=== PATIENT | male | born 1995 | race Caucasian/White ===

== ENCOUNTER 2017-09-18 14:17 | Emergency (ER) | payer OTHER ==
[2017-09-18] MEDS ORDERED: ACETAMINOPHEN EXTRA STRENGTH 500 MG TABLET ONE (14:33)
== END 2017-09-18 15:13 | disposition home or self-care (01) ==
LOC: EDH 14:17
DX: J02.9 Acute pharyngitis, unspecified (principal)
CPT/HCPCS: 87880